=== PATIENT | female | born 1955 | race Caucasian/White ===

== ENCOUNTER 2017-08-21 17:35 | Inpatient (IN) | payer OTHER ==
[~2017-08-21] VITALS: Ht 157.5 cm; Wt 82.6 kg
[2017-08-21 17:41] VITALS: BP_SYST 148
[2017-08-21] MEDS ORDERED: DIPHENHYDRAMINE INJ 50 MG/ML VIAL IVP ONE (18:15)
[2017-08-21] MEDS ORDERED: NACL 0.9% 1,000 ML IV ONE (18:15)
[2017-08-21] MEDS ORDERED: ONDANSETRON HCL 4 MG/2 ML VIAL IVP ONE (18:15)
[2017-08-21] MEDS ORDERED: LISI-221 PO (18:24)
[2017-08-21] MEDS ORDERED: LEVO25TA7 PO (18:24)
[2017-08-21 18:29] LABS: BILIRUBIN,URINE 1+ (NEGATIVE); BLOOD, URINE NEGATIVE (NEGATIVE); CLARITY/URINE SL HAZY (CLEAR); COLOR,URINE YELLOW (YELLOW); GLUCOSE,URINE NEGATIVE (NEGATIVE); KETONES,URINE NEGATIVE (NEGATIVE); LEUKOCYTE ESTERASE ,URINE 2+ (NEGATIVE); NITRITE, URINE NEGATIVE (NEGATIVE); PROTEIN URINE NEGATIVE (NEGATIVE); UROBILINOGEN,URINE 0.2 (0.2-1.0)
[2017-08-21 18:37] LABS: BASOPHILS # (AUTO) 0.1 K/uL (0.0-0.2); BASOPHILS % (AUTO) 0.8 % (0.0-2.0); EOSINOPHILS # (AUTO) 0.4 K/uL (0.0-0.4); EOSINOPHILS % (AUTO) 5.2 % (0.0-4.0); HEMATOCRIT 37.7 % (36-48); HEMOGLOBIN 12.6 g/dL (12.0-16.0); LYMPHOCYTES # (AUTO) 1.3 K/uL (1.0-5.5); LYMPHOCYTES % (AUTO) 17.2 % (20.5-51.5); MEAN CORPUSCULAR HEMOGLOBIN 27 pg (27-31); MEAN CORPUSCULAR HGB CONC 33 % (32-36); MEAN CORPUSCULAR VOLUME 81 fL (79.0-98.0); MONOCYTES # (AUTO) 0.4 K/uL (0.0-1.0); MONOCYTES % (AUTO) 5.5 % (1.7-9.3); NEUTROPHILS # (AUTO) 5.2 K/uL (1.8-7.7); NEUTROPHILS % (AUTO) 71.3 % (40.0-70.0); PLATELET COUNT (AUTO) 359 K/uL (130-430); RED BLOOD CELL COUNT(AUTO) 4.66 MIL/uL (4.2-6.2); WHITE BLOOD COUNT (AUTO) 7.4 K/uL (4.8-10.8)
[2017-08-21 18:40] LABS: BACTERIA,URINE FEW /HPF (None Seen); MUCUS,URINE None Seen /LPF (None Seen); RBC,URINE NONE SEEN /HPF (0-3)
[2017-08-21 19:44] LABS: CREATININE 0.75 mg/dL (0.55-1.30); POTASSIUM 3.3 mmol/L (3.5-5.1)
[2017-08-21 19:46] LABS: ALBUMIN 3.5 g/dL (3.4-4.8); TOTAL BILIRUBIN 8.6 mg/dL (0.0-1.0)
[2017-08-21] MEDS ORDERED: PIPERACILLIN/TAZOBACTAM 3.375 GM/VIAL (ZOSYN) IV ONE (20:42)
[2017-08-21] MEDS ORDERED: PIPERACILLIN/TAZO 4.5GM/DEX-IS 100 ML IV ONE (20:45)
[2017-08-21] MEDS ORDERED: PIPERACILLIN/TAZOBACTAM 4.5 GM/VIAL (ZOSYN) IV ONE (20:46)
[2017-08-21 21:22] VITALS: BP_SYST 139
[2017-08-21] MEDS ORDERED: ACETAMINOPHEN 325 MG TABLET PO PRN (22:00)
[2017-08-21] MEDS ORDERED: DIPHENHYDRAMINE INJ 50 MG/ML VIAL IVP PRN (23:00)
[2017-08-21] MEDS ORDERED: POTASSIUM CHLORIDE 20 MEQ TAB.PRT.SR PO ONE (23:00)
[2017-08-22] MEDS: LR 1,000 ML IV SCH ×2 (00:15→17:59)
[2017-08-22 00:58] VITALS: BP_SYST 122
[2017-08-22] MEDS ORDERED: cefTRIAXone 1 GM VIAL ONE (01:05)
[2017-08-22] MEDS: cefTRIAXone 1 GM in D5W 50 ML IV SCH ×2 (01:20→23:28)
[2017-08-22 06:24] LABS: PROTHROMBIN TIME 9.8 SECS (9.5-12.5)
[2017-08-22 06:27] LABS: ALBUMIN 2.8 g/dL (3.4-4.8); BILIRUBIN,DIRECT 6.8 mg/dL (0.0-0.3); CREATININE 1.01 mg/dL (0.55-1.30); TOTAL BILIRUBIN 7.6 mg/dL (0.0-1.0)
[2017-08-22 06:48] LABS: CALCIUM 6.8 mg/dL (8.4-11.0)
[2017-08-22 07:06] VITALS: BP_SYST 117
[2017-08-22 08:00] VITALS: BP_SYST 117
[2017-08-22] MEDS: HYDROCHLOROTHIAZIDE 25 MG TABLET (HCTZ) PO SCH (09:43)
[2017-08-22] MEDS: LEVOTHYROXINE SODIUM 0.025 MG TABLET PO SCH (09:44)
[2017-08-22] MEDS: DIPHENHYDRAMINE HCL 25 MG CAPSULE PO SCH ×3 (09:44→20:53)
[2017-08-22] MEDS: LISINOPRIL 20 MG TABLET PO SCH (09:45)
[2017-08-22] MEDS ORDERED: POTASSIUM CHLORIDE 20 MEQ TAB.PRT.SR PO ONE (10:30)
[2017-08-22 12:30] VITALS: BP_SYST 115
[2017-08-22 16:30] VITALS: BP_SYST 120
[2017-08-22 20:00] VITALS: BP_SYST 138
[2017-08-22] MEDS: POTASSIUM CHLORIDE 20 MEQ TAB.PRT.SR PO SCH (20:53)
[2017-08-23 00:05] VITALS: BP_SYST 122
[2017-08-23 03:05] VITALS: BP_SYST 120
[2017-08-23 06:37] LABS: PROTHROMBIN TIME 9.7 SECS (9.5-12.5)
[2017-08-23 06:59] LABS: ALBUMIN 2.8 g/dL (3.4-4.8); CALCIUM 7.2 mg/dL (8.4-11.0); CREATININE 0.87 mg/dL (0.55-1.30); POTASSIUM 3.2 mmol/L (3.5-5.1)
[2017-08-23 08:00] VITALS: BP_SYST 127
[2017-08-23] MEDS ORDERED: POTASSIUM CHLORIDE 40 MEQ, LIDOCAINE JECT 2% PF 100 MG 50 MG in NS 250 ML IV ONE (08:30)
[2017-08-23] MEDS: LEVOTHYROXINE SODIUM 0.025 MG TABLET PO SCH (09:00)
[2017-08-23] MEDS: POTASSIUM CHLORIDE 20 MEQ TAB.PRT.SR PO SCH ×2 (09:00→20:33)
[2017-08-23] MEDS: DIPHENHYDRAMINE HCL 25 MG CAPSULE PO SCH ×3 (09:00→20:33)
[2017-08-23] MEDS ORDERED: LIDOCAINE JECT IV ONE (09:18)
[2017-08-23] MEDS ORDERED: NS 0.45% IV ONE (09:18)
[2017-08-23] MEDS ORDERED: POTASSIUM CHLORIDE IV ONE (09:18)
[2017-08-23] MEDS: LR 1,000 ML IV SCH ×2 (10:15→18:15)
[2017-08-23 10:37] VITALS: BP_SYST 122
[2017-08-23] MEDS: HYDROCHLOROTHIAZIDE 25 MG TABLET (HCTZ) PO SCH (12:00)
[2017-08-23] MEDS: LISINOPRIL 20 MG TABLET PO SCH (12:00)
[2017-08-23 12:02] LABS: HEPATITIS A AB, IgM Negative (Negative); HEPATITIS B CORE AB, IgM Negative (Negative); HEPATITIS B SURFACE AG Negative (Negative)
[2017-08-23] MEDS ORDERED: IOHEXOL 50 ML IV ONE (14:33)
[2017-08-23] MEDS ORDERED: LR 1,000 ML IV SCH ×2 (15:16→16:30)
[2017-08-23] MEDS ORDERED: HYDROmorphone 2 MG/ML VIAL IVP PRN ×2 (15:30)
[2017-08-23] MEDS ORDERED: HYDROmorphone 1 MG INJ. 1 MG/ML AMPUL IVP PRN (15:30)
[2017-08-23] MEDS ORDERED: MEPERIDINE HCL/PF 25 MG/ML DISP.SYRIN IVP PRN (15:30)
[2017-08-23] MEDS ORDERED: SEVOFLURANE 15 MIN GAS INH ONE (15:43)
[2017-08-23] MEDS ORDERED: fentaNYL CITRATE 250 MCG/5 ML AMP IV ONE (15:43)
[2017-08-23] MEDS ORDERED: MIDAZOLAM HCL 5 MG/ML VIAL (VERSED) IV ONE (15:43)
[2017-08-23] MEDS ORDERED: GLUCAGON,HUMAN RECOMBINANT 1 MG VIAL IV ONE (15:43)
[2017-08-23] MEDS ORDERED: ROCURONIUM BROMIDE 10 MG/ML (ZEMURON) IV ONE (15:43)
[2017-08-23] MEDS ORDERED: WATER FOR IRRIGATION,STERILE 1,000 ML IRRIG.SOLN IR ONE (15:43)
[2017-08-23] MEDS ORDERED: LR 1,000 ML IV.SOLN IV ONE (15:43)
[2017-08-23] MEDS ORDERED: KETOROLAC TROMETHAMINE 30 MG VIAL IVP ONE (15:43)
[2017-08-23] MEDS ORDERED: DEXAMETHASONE SOD PHOSPHATE 4 MG/ML VIAL IVP ONE (15:43)
[2017-08-23] MEDS ORDERED: ONDANSETRON HCL 4 MG/2 ML VIAL IVP ONE (15:43)
[2017-08-23] MEDS ORDERED: PROPOFOL 200MG/ 20ML VIAL (DIPRIVAN) IV ONE (15:43)
[2017-08-23 16:34] LABS: ANTI NUCLEAR AB WITH REFLEX Negative (Negative)
[2017-08-23 16:40] VITALS: BP_SYST 122
[2017-08-23] MEDS ORDERED: POTASSIUM CHLORIDE 20 MEQ TAB.PRT.SR PO ONE (18:00)
[2017-08-23 19:15] VITALS: BP_SYST 118
[2017-08-23] MEDS: cefTRIAXone 1 GM in D5W 50 ML IV SCH (20:33)
[2017-08-24] MEDS: LR 1,000 ML IV SCH ×2 (04:15→13:19)
[2017-08-24 06:49] LABS: ALBUMIN 2.8 g/dL (3.4-4.8); CALCIUM 7.5 mg/dL (8.4-11.0); CREATININE 1.02 mg/dL (0.55-1.30); TOTAL BILIRUBIN 8.9 mg/dL (0.0-1.0)
[2017-08-24 06:53] LABS: BASOPHILS % (AUTO) 0.1 % (0.0-2.0); EOSINOPHILS % (AUTO) 0.1 % (0.0-4.0); HEMATOCRIT 33.5 % (36-48); HEMOGLOBIN 11.2 g/dL (12.0-16.0); LYMPHOCYTES # (AUTO) 0.5 K/uL (1.0-5.5); LYMPHOCYTES % (AUTO) 6.7 % (20.5-51.5); MEAN CORPUSCULAR HEMOGLOBIN 27 pg (27-31); MEAN CORPUSCULAR HGB CONC 34 % (32-36); MEAN CORPUSCULAR VOLUME 80 fL (79.0-98.0); MONOCYTES # (AUTO) 0.2 K/uL (0.0-1.0); MONOCYTES % (AUTO) 3.3 % (1.7-9.3); NEUTROPHILS # (AUTO) 6.5 K/uL (1.8-7.7); NEUTROPHILS % (AUTO) 89.8 % (40.0-70.0); PLATELET COUNT (AUTO) 275 K/uL (130-430); RED BLOOD CELL COUNT(AUTO) 4.19 MIL/uL (4.2-6.2); RED CELL DISTRIBUTION WIDTH 13.6 % (9.0-15.0); WHITE BLOOD COUNT (AUTO) 7.2 K/uL (4.8-10.8)
[2017-08-24 08:03] VITALS: BP_SYST 104
[2017-08-24] MEDS: POTASSIUM CHLORIDE 20 MEQ TAB.PRT.SR PO SCH ×2 (08:49→20:59)
[2017-08-24] MEDS: LEVOTHYROXINE SODIUM 0.025 MG TABLET PO SCH (08:50)
[2017-08-24] MEDS: DIPHENHYDRAMINE HCL 25 MG CAPSULE PO SCH ×3 (08:50→20:59)
[2017-08-24 10:42] VITALS: BP_SYST 135
[2017-08-24 11:29] VITALS: BP_SYST 139
[2017-08-24] MEDS: LISINOPRIL 20 MG TABLET PO SCH (13:14)
[2017-08-24] MEDS: HYDROCHLOROTHIAZIDE 25 MG TABLET (HCTZ) PO SCH (13:14)
[2017-08-24 15:36] VITALS: BP_SYST 132
[2017-08-24 20:00] VITALS: BP_SYST 145
[2017-08-24 20:11] LABS: ANTI-SMOOTH MUSCLE AB 24 Units (0-19)
[2017-08-24] MEDS: cefTRIAXone 1 GM in D5W 50 ML IV SCH (22:42)
[2017-08-25] VITALS (8 sets, daily range): BP systolic 117–160
[2017-08-25] MEDS: LR 1,000 ML IV SCH ×2 (00:19→11:03)
[2017-08-25 06:33] LABS: BASOPHILS # (AUTO) 0.1 K/uL (0.0-0.2); BASOPHILS % (AUTO) 0.8 % (0.0-2.0); EOSINOPHILS # (AUTO) 0.3 K/uL (0.0-0.4); EOSINOPHILS % (AUTO) 4.3 % (0.0-4.0); HEMOGLOBIN 10.5 g/dL (12.0-16.0); LYMPHOCYTES # (AUTO) 1.3 K/uL (1.0-5.5); LYMPHOCYTES % (AUTO) 20.9 % (20.5-51.5); MEAN CORPUSCULAR HEMOGLOBIN 27 pg (27-31); MEAN CORPUSCULAR HGB CONC 33 % (32-36); MEAN CORPUSCULAR VOLUME 82 fL (79.0-98.0); MONOCYTES # (AUTO) 0.3 K/uL (0.0-1.0); MONOCYTES % (AUTO) 5.2 % (1.7-9.3); NEUTROPHILS # (AUTO) 4.3 K/uL (1.8-7.7); NEUTROPHILS % (AUTO) 68.8 % (40.0-70.0); PLATELET COUNT (AUTO) 277 K/uL (130-430); RED BLOOD CELL COUNT(AUTO) 3.92 MIL/uL (4.2-6.2); RED CELL DISTRIBUTION WIDTH 14.5 % (9.0-15.0); WHITE BLOOD COUNT (AUTO) 6.3 K/uL (4.8-10.8)
[2017-08-25 06:57] LABS: ALBUMIN 2.5 g/dL (3.4-4.8); CALCIUM 7.5 mg/dL (8.4-11.0); CREATININE 0.87 mg/dL (0.55-1.30); POTASSIUM 4.1 mmol/L (3.5-5.1)
[2017-08-25] MEDS: DIPHENHYDRAMINE HCL 25 MG CAPSULE PO SCH ×3 (08:54→20:40)
[2017-08-25] MEDS: POTASSIUM CHLORIDE 20 MEQ TAB.PRT.SR PO SCH ×2 (08:54→20:40)
[2017-08-25] MEDS: LEVOTHYROXINE SODIUM 0.025 MG TABLET PO SCH (09:19)
[2017-08-25] MEDS: LISINOPRIL 20 MG TABLET PO SCH (12:09)
[2017-08-25] MEDS: HYDROCHLOROTHIAZIDE 25 MG TABLET (HCTZ) PO SCH (12:10)
[2017-08-25] MEDS ORDERED: IOHEXOL 100 ML IV ONE ×2 (13:19→19:43)
[2017-08-25] MEDS ORDERED: GLUCAGON,HUMAN RECOMBINANT 1 MG VIAL IV ONE (13:20)
[2017-08-25] MEDS ORDERED: ONDANSETRON HCL 4 MG/2 ML VIAL IVP ONE (13:20)
[2017-08-25] MEDS ORDERED: PROPOFOL 200MG/ 20ML VIAL (DIPRIVAN) IV ONE (13:20)
[2017-08-25] MEDS ORDERED: fentaNYL CITRATE 250 MCG/5 ML AMP IV ONE (13:20)
[2017-08-25] MEDS ORDERED: SEVOFLURANE 15 MIN GAS INH ONE (13:20)
[2017-08-25] MEDS ORDERED: INDOMETHACIN 25 MG CAPSULE(INDOCIN) PO ONE (13:20)
[2017-08-25] MEDS ORDERED: NS IRRIG SOLN 1000 ML IR ONE (13:20)
[2017-08-25] MEDS ORDERED: MIVACURIUM CHLORIDE 20 MG/10 ML VIAL (MIVACRON) INJ ONE (13:20)
[2017-08-25] MEDS ORDERED: MIDAZOLAM HCL 5 MG/5 ML VIAL IVP ONE (13:20)
[2017-08-25] MEDS ORDERED: IOPAMIDOL 100 ML INFUS..BTL IV ONE (13:20)
[2017-08-25] MEDS ORDERED: WATER FOR IRRIGATION,STERILE 1,000 ML IRRIG.SOLN IR ONE (13:20)
[2017-08-25] MEDS ORDERED: MORPHINE SULFATE 10MG/10ML PF AMP EP ONE (13:20)
[2017-08-25] MEDS ORDERED: INDOMETHACIN 25 MG CAPSULE(INDOCIN) ONE (13:44)
[2017-08-25] MEDS ORDERED: LR 1,000 ML IV SCH ×3 (14:03→16:00)
[2017-08-25] MEDS ORDERED: MORPHINE 4 MG/ML INJ. SYRINGE IVP PRN ×6 (14:15)
[2017-08-25] MEDS ORDERED: METOCLOPRAMIDE HCL 10 MG/2 ML VIAL IVP PRN ×2 (14:15)
[2017-08-25] MEDS ORDERED: hydrALAZINE HCL 20 MG/ML VIAL IVP PRN (17:00)
[2017-08-25] MEDS ORDERED: DIATR MEGLU/DIATRIZ SOD 30 ML SOLUTION PO ONE (17:10)
[2017-08-25] MEDS: MORPHINE 4 MG/ML INJ. SYRINGE IVP PRN (17:50)
[2017-08-25] MEDS ORDERED: HYDROmorphone 1 MG INJ. 1 MG/ML AMPUL IVP ONE (18:45)
[2017-08-25] MEDS ORDERED: KETOROLAC TROMETHAMINE 30 MG VIAL IVP ONE (18:45)
[2017-08-25] MEDS ORDERED: HYDROcodone/ACETAMIN 10-325 MG TAB PO ONE (18:45)
[2017-08-25] MEDS: ONDANSETRON HCL 4 MG/2 ML VIAL IVP PRN (20:46)
[2017-08-25] MEDS: cefTRIAXone 1 GM in D5W 50 ML IV SCH (23:29)
[2017-08-26] VITALS (8 sets, daily range): BP systolic 116–140
[2017-08-26] MEDS: LR 1,000 ML IV SCH ×2 (01:21→12:30)
[2017-08-26] MEDS: MORPHINE 4 MG/ML INJ. SYRINGE IVP PRN ×2 (01:21→19:47)
[2017-08-26 06:34] LABS: BASOPHILS % (AUTO) 0.2 % (0.0-2.0); EOSINOPHILS # (AUTO) 0.2 K/uL (0.0-0.4); EOSINOPHILS % (AUTO) 2.3 % (0.0-4.0); HEMATOCRIT 35.5 % (36-48); HEMOGLOBIN 11.5 g/dL (12.0-16.0); LYMPHOCYTES # (AUTO) 0.6 K/uL (1.0-5.5); LYMPHOCYTES % (AUTO) 7.2 % (20.5-51.5); MEAN CORPUSCULAR HEMOGLOBIN 27 pg (27-31); MEAN CORPUSCULAR HGB CONC 33 % (32-36); MEAN CORPUSCULAR VOLUME 82 fL (79.0-98.0); MONOCYTES # (AUTO) 0.1 K/uL (0.0-1.0); MONOCYTES % (AUTO) 1.4 % (1.7-9.3); NEUTROPHILS % (AUTO) 88.9 % (40.0-70.0); PLATELET COUNT (AUTO) 309 K/uL (130-430); RED BLOOD CELL COUNT(AUTO) 4.34 MIL/uL (4.2-6.2); RED CELL DISTRIBUTION WIDTH 14.2 % (9.0-15.0); WHITE BLOOD COUNT (AUTO) 8.9 K/uL (4.8-10.8)
[2017-08-26 06:45] LABS: ALBUMIN 2.5 g/dL (3.4-4.8); CREATININE 0.99 mg/dL (0.55-1.30); POTASSIUM 3.9 mmol/L (3.5-5.1)
[2017-08-26 07:16] LABS: CALCIUM 6.9 mg/dL (8.4-11.0)
[2017-08-26] MEDS: MORPHINE 2 MG/ML INJ. SYRINGE IVP PRN ×2 (07:52→16:31)
[2017-08-26] MEDS: POTASSIUM CHLORIDE 20 MEQ TAB.PRT.SR PO SCH ×2 (08:53→20:43)
[2017-08-26] MEDS: DIPHENHYDRAMINE HCL 25 MG CAPSULE PO SCH ×3 (08:53→20:43)
[2017-08-26] MEDS: LEVOTHYROXINE SODIUM 0.025 MG TABLET PO SCH (08:53)
[2017-08-26] MEDS: LISINOPRIL 20 MG TABLET PO SCH (12:36)
[2017-08-26] MEDS: HYDROCHLOROTHIAZIDE 25 MG TABLET (HCTZ) PO SCH (12:36)
[2017-08-26] MEDS: CALCIUM 600/VIT D PO SCH ×3 (16:22→20:43)
[2017-08-26] MEDS: CHOLECALCIFEROL (VITAMIN D3) 2,000 UNIT TABLET PO SCH (18:56)
[2017-08-26] MEDS: cefTRIAXone 1 GM in D5W 50 ML IV SCH (22:14)
[2017-08-26 23:44] LABS: BILIRUBIN,URINE 1+ (NEGATIVE); BLOOD, URINE NEGATIVE (NEGATIVE); CLARITY/URINE CLEAR (CLEAR); COLOR,URINE AMBER (YELLOW); GLUCOSE,URINE NEGATIVE (NEGATIVE); KETONES,URINE 1+ (NEGATIVE); LEUKOCYTE ESTERASE ,URINE NEGATIVE (NEGATIVE); NITRITE, URINE NEGATIVE (NEGATIVE); PH,URINE 5.5 (5.0-8.0); PROTEIN URINE NEGATIVE (NEGATIVE)
[2017-08-27 00:06] LABS: BACTERIA,URINE MANY /HPF (None Seen); RBC,URINE 0-3 /HPF (0-3); WBC,URINE 0-3 /HPF (0-3)
[2017-08-27 00:19] VITALS: BP_SYST 120
[2017-08-27] MEDS: MORPHINE 4 MG/ML INJ. SYRINGE IVP PRN ×2 (00:20→06:53)
[2017-08-27 04:14] VITALS: BP_SYST 113
[2017-08-27 06:46] LABS: BASOPHILS # (AUTO) 0.1 K/uL (0.0-0.2); BASOPHILS % (AUTO) 0.6 % (0.0-2.0); EOSINOPHILS # (AUTO) 0.5 K/uL (0.0-0.4); EOSINOPHILS % (AUTO) 2.3 % (0.0-4.0); HEMATOCRIT 34.1 % (36-48); HEMOGLOBIN 11.7 g/dL (12.0-16.0); LYMPHOCYTES # (AUTO) 0.5 K/uL (1.0-5.5); LYMPHOCYTES % (AUTO) 2.6 % (20.5-51.5); MEAN CORPUSCULAR HEMOGLOBIN 28 pg (27-31); MEAN CORPUSCULAR HGB CONC 34 % (32-36); MEAN CORPUSCULAR VOLUME 80 fL (79.0-98.0); MONOCYTES # (AUTO) 0.6 K/uL (0.0-1.0); MONOCYTES % (AUTO) 2.8 % (1.7-9.3); NEUTROPHILS # (AUTO) 18.4 K/uL (1.8-7.7); NEUTROPHILS % (AUTO) 91.7 % (40.0-70.0); PLATELET COUNT (AUTO) 280 K/uL (130-430); RED BLOOD CELL COUNT(AUTO) 4.25 MIL/uL (4.2-6.2); RED CELL DISTRIBUTION WIDTH 14.2 % (9.0-15.0); WHITE BLOOD COUNT (AUTO) 20.1 K/uL (4.8-10.8)
[2017-08-27 07:00] LABS: ALBUMIN 2.3 g/dL (3.4-4.8); CREATININE 0.96 mg/dL (0.55-1.30); POTASSIUM 3.9 mmol/L (3.5-5.1)
[2017-08-27 07:03] LABS: INR 1.3 (0.8-1.2); PROTHROMBIN TIME 13.2 SECS (9.5-12.5)
[2017-08-27 07:10] LABS: CALCIUM 6.1 mg/dL (8.4-11.0)
[2017-08-27] MEDS ORDERED: CALCIUM GLUCONATE 1 GM/10 ML VIAL IV ONE (07:45)
[2017-08-27] MEDS ORDERED: CALCIUM GLUCONATE 1 GM in NS 100 ML IV ONE ×2 (08:45→15:00)
[2017-08-27] MEDS: DIPHENHYDRAMINE HCL 25 MG CAPSULE PO SCH ×3 (09:00→21:00)
[2017-08-27] MEDS: PIPERACILLIN/TAZO 4.5GM/DEX-IS 100 ML IV SCH ×3 (09:29→22:00)
[2017-08-27] MEDS: CALCIUM 600/VIT D PO SCH ×4 (09:34→21:00)
[2017-08-27] MEDS: POTASSIUM CHLORIDE 20 MEQ TAB.PRT.SR PO SCH ×2 (09:35→21:00)
[2017-08-27] MEDS: CHOLECALCIFEROL (VITAMIN D3) 2,000 UNIT TABLET PO SCH (09:35)
[2017-08-27] MEDS: LEVOTHYROXINE SODIUM 0.025 MG TABLET PO SCH (09:38)
[2017-08-27] MEDS: LR 1,000 ML IV SCH ×4 (09:38→21:36)
[2017-08-27] MEDS: LISINOPRIL 20 MG TABLET PO SCH (09:44)
[2017-08-27] MEDS: VANCOMYCIN HCL 750 MG in NS 250 ML IV SCH ×2 (10:00→22:00)
[2017-08-27 12:52] VITALS: BP_SYST 122
[2017-08-27] MEDS ORDERED: IPRATROPIUM/ALBUTEROL SULFATE 3 ML AMPUL.NEB INH PRN (14:00)
[2017-08-27 16:53] VITALS: BP_SYST 120
[2017-08-27] MEDS: MORPHINE 2 MG/ML INJ. SYRINGE IVP PRN (18:27)
[2017-08-27] MEDS: HYDROCHLOROTHIAZIDE 25 MG TABLET (HCTZ) PO SCH (18:31)
[2017-08-27 20:00] VITALS: BP_SYST 142
[2017-08-27] MEDS ORDERED: CALCIUM GLUCONATE 1 GM/10 ML VIAL ONE (21:21)
[2017-08-28 00:29] VITALS: BP_SYST 126
[2017-08-28] MEDS: LR 1,000 ML IV SCH ×6 (02:05→23:45)
[2017-08-28 04:34] VITALS: BP_SYST 131
[2017-08-28] MEDS: PIPERACILLIN/TAZO 4.5GM/DEX-IS 100 ML IV SCH ×3 (05:18→22:01)
[2017-08-28 06:53] LABS: BASOPHILS % (AUTO) 0.2 % (0.0-2.0); EOSINOPHILS # (AUTO) 0.5 K/uL (0.0-0.4); EOSINOPHILS % (AUTO) 2.2 % (0.0-4.0); HEMATOCRIT 32.1 % (36-48); HEMOGLOBIN 10.6 g/dL (12.0-16.0); LYMPHOCYTES # (AUTO) 0.6 K/uL (1.0-5.5); LYMPHOCYTES % (AUTO) 2.8 % (20.5-51.5); MEAN CORPUSCULAR HEMOGLOBIN 27 pg (27-31); MEAN CORPUSCULAR HGB CONC 33 % (32-36); MEAN CORPUSCULAR VOLUME 82 fL (79.0-98.0); MONOCYTES # (AUTO) 0.8 K/uL (0.0-1.0); MONOCYTES % (AUTO) 3.8 % (1.7-9.3); NEUTROPHILS # (AUTO) 18.6 K/uL (1.8-7.7); PLATELET COUNT (AUTO) 280 K/uL (130-430); RED BLOOD CELL COUNT(AUTO) 3.93 MIL/uL (4.2-6.2); RED CELL DISTRIBUTION WIDTH 14.3 % (9.0-15.0); WHITE BLOOD COUNT (AUTO) 20.5 K/uL (4.8-10.8)
[2017-08-28] MEDS: IPRATROPIUM/ALBUTEROL SULFATE 3 ML AMPUL.NEB INH SCH ×3 (07:00→19:59)
[2017-08-28 07:22] LABS: CREATININE 0.8 mg/dL (0.55-1.30); POTASSIUM 3.3 mmol/L (3.5-5.1); TOTAL BILIRUBIN 2.4 mg/dL (0.0-1.0)
[2017-08-28 08:00] VITALS: BP_SYST 136
[2017-08-28] MEDS: POTASSIUM CHLORIDE 20 MEQ TAB.PRT.SR PO SCH ×2 (08:04→20:37)
[2017-08-28] MEDS: DIPHENHYDRAMINE HCL 25 MG CAPSULE PO SCH ×3 (08:05→20:57)
[2017-08-28] MEDS: LEVOTHYROXINE SODIUM 0.025 MG TABLET PO SCH (08:05)
[2017-08-28] MEDS: CHOLECALCIFEROL (VITAMIN D3) 2,000 UNIT TABLET PO SCH (08:05)
[2017-08-28 08:11] LABS: CALCIUM 6.7 mg/dL (8.4-11.0)
[2017-08-28] MEDS: CALCIUM 600/VIT D PO SCH ×4 (08:11→20:38)
[2017-08-28] MEDS: VANCOMYCIN HCL 750 MG in NS 250 ML IV SCH ×2 (08:59→22:53)
[2017-08-28] MEDS ORDERED: CALCIUM GLUCONATE 1 GM in NS 100 ML IV ONE (09:15)
[2017-08-28] MEDS ORDERED: FLUCONAZOLE 200 mg/ NS 100 ML IV ONE (10:45)
[2017-08-28] MEDS ORDERED: NS 250 ML IV ONE (10:45)
[2017-08-28 12:09] VITALS: BP_SYST 133
[2017-08-28] MEDS: LISINOPRIL 20 MG TABLET PO SCH (12:13)
[2017-08-28] MEDS: HYDROCHLOROTHIAZIDE 25 MG TABLET (HCTZ) PO SCH (12:13)
[2017-08-28] MEDS: MORPHINE 4 MG/ML INJ. SYRINGE IVP PRN (12:51)
[2017-08-28] MEDS ORDERED: POTASSIUM CHLORIDE 20 MEQ TAB.PRT.SR PO ONE (14:15)
[2017-08-28 16:28] VITALS: BP_SYST 134
[2017-08-28 20:00] VITALS: BP_SYST 128
[2017-08-29] VITALS (10 sets, daily range): BP systolic 124–150
[2017-08-29] MEDS: IPRATROPIUM/ALBUTEROL SULFATE 3 ML AMPUL.NEB INH SCH ×4 (00:47→19:56)
[2017-08-29] MEDS: LR 1,000 ML IV SCH ×5 (01:22→14:18)
[2017-08-29] MEDS: PIPERACILLIN/TAZO 4.5GM/DEX-IS 100 ML IV SCH ×3 (05:24→20:59)
[2017-08-29 06:29] LABS: HEMATOCRIT 31.2 % (36-48); HEMOGLOBIN 10.5 g/dL (12.0-16.0); MEAN CORPUSCULAR HEMOGLOBIN 27 pg (27-31); MEAN CORPUSCULAR HGB CONC 34 % (32-36); MEAN CORPUSCULAR VOLUME 81 fL (79.0-98.0); PLATELET COUNT (AUTO) 345 K/uL (130-430); RED BLOOD CELL COUNT(AUTO) 3.84 MIL/uL (4.2-6.2); RED CELL DISTRIBUTION WIDTH 14.3 % (9.0-15.0)
[2017-08-29 06:33] LABS: CREATININE 0.8 mg/dL (0.55-1.30); PHOSPHORUS 3.8 mg/dL (2.7-4.5); POTASSIUM 3.6 mmol/L (3.5-5.1); TOTAL BILIRUBIN 1.9 mg/dL (0.0-1.0)
[2017-08-29 07:26] LABS: CALCIUM 6.7 mg/dL (8.4-11.0)
[2017-08-29 08:48] LABS: ATYPICAL LYMPHOCYTES % 0 % (0-0); BAND % (MANUAL) 14 % (0-6); BASOPHILS % (MANUAL) 0 % (0-2); EOSINOPHILS % (MANUAL) 0 % (0-7); LYMPHOCYTES % (MANUAL) 5 % (20-46); MONOCYTES % (MANUAL) 1 % (0-11)
[2017-08-29] MEDS: DIPHENHYDRAMINE HCL 25 MG CAPSULE PO SCH ×3 (09:00→20:13)
[2017-08-29] MEDS: LEVOTHYROXINE SODIUM 0.025 MG TABLET PO SCH (09:00)
[2017-08-29] MEDS ORDERED: CALCIUM GLUCONATE 1 GM in NS 100 ML IV ONE (09:00)
[2017-08-29] MEDS: POTASSIUM CHLORIDE 20 MEQ TAB.PRT.SR PO SCH ×2 (09:02→20:11)
[2017-08-29] MEDS: CHOLECALCIFEROL (VITAMIN D3) 2,000 UNIT TABLET PO SCH (09:03)
[2017-08-29] MEDS: CALCIUM 600/VIT D PO SCH (09:03)
[2017-08-29] MEDS: MORPHINE 4 MG/ML INJ. SYRINGE IVP PRN (09:06)
[2017-08-29] MEDS: VANCOMYCIN HCL 750 MG in NS 250 ML IV SCH ×2 (09:16→22:10)
[2017-08-29] MEDS ORDERED: CALCITRIOL 0.25 MCG CAPSULE PO ONE (10:00)
[2017-08-29] MEDS: LISINOPRIL 20 MG TABLET PO SCH (11:16)
[2017-08-29] MEDS: HYDROCHLOROTHIAZIDE 25 MG TABLET (HCTZ) PO SCH (11:18)
[2017-08-29] MEDS: CALCIUM 500 MG/TAB PO SCH ×2 (15:00→20:11)
[2017-08-29] MEDS: CALCITRIOL 0.25 MCG CAPSULE PO SCH (20:11)
[2017-08-30] VITALS: BP_SYST 142
[2017-08-30] MEDS: IPRATROPIUM/ALBUTEROL SULFATE 3 ML AMPUL.NEB INH SCH ×4 (00:46→19:22)
[2017-08-30 04:06] VITALS: BP_SYST 143
[2017-08-30] MEDS: LR 1,000 ML IV SCH ×2 (05:19→17:28)
[2017-08-30] MEDS: PIPERACILLIN/TAZO 4.5GM/DEX-IS 100 ML IV SCH ×3 (05:20→21:48)
[2017-08-30] MEDS: MORPHINE 2 MG/ML INJ. SYRINGE IVP PRN (06:17)
[2017-08-30 06:38] LABS: BASOPHILS % (AUTO) 0.2 % (0.0-2.0); EOSINOPHILS # (AUTO) 0.3 K/uL (0.0-0.4); EOSINOPHILS % (AUTO) 2.2 % (0.0-4.0); HEMATOCRIT 29.7 % (36-48); HEMOGLOBIN 10.1 g/dL (12.0-16.0); LYMPHOCYTES # (AUTO) 0.8 K/uL (1.0-5.5); LYMPHOCYTES % (AUTO) 5.2 % (20.5-51.5); MEAN CORPUSCULAR HEMOGLOBIN 27 pg (27-31); MEAN CORPUSCULAR HGB CONC 34 % (32-36); MEAN CORPUSCULAR VOLUME 81 fL (79.0-98.0); MONOCYTES # (AUTO) 0.9 K/uL (0.0-1.0); MONOCYTES % (AUTO) 5.9 % (1.7-9.3); NEUTROPHILS # (AUTO) 12.7 K/uL (1.8-7.7); NEUTROPHILS % (AUTO) 86.5 % (40.0-70.0); PLATELET COUNT (AUTO) 395 K/uL (130-430); RED BLOOD CELL COUNT(AUTO) 3.67 MIL/uL (4.2-6.2); RED CELL DISTRIBUTION WIDTH 14.4 % (9.0-15.0); WHITE BLOOD COUNT (AUTO) 14.7 K/uL (4.8-10.8)
[2017-08-30 07:16] LABS: CALCIUM 8.2 mg/dL (8.4-11.0); CREATININE 0.83 mg/dL (0.55-1.30); POTASSIUM 3.4 mmol/L (3.5-5.1)
[2017-08-30 07:41] LABS: ALBUMIN 1.8 g/dL (3.4-4.8); THYROID STIMULATING HORMONE 14.21 uIu/mL (0.36-3.74); TOTAL BILIRUBIN 1.6 mg/dL (0.0-1.0)
[2017-08-30] MEDS ORDERED: CALCITRIOL 0.25 MCG CAPSULE PO SCH (09:00)
[2017-08-30] MEDS: DIPHENHYDRAMINE HCL 25 MG CAPSULE PO SCH ×3 (09:03→20:43)
[2017-08-30] MEDS: CALCIUM 500 MG/TAB PO SCH ×3 (09:03→20:43)
[2017-08-30] MEDS: POTASSIUM CHLORIDE 20 MEQ TAB.PRT.SR PO SCH ×2 (09:03→20:43)
[2017-08-30] MEDS: LEVOTHYROXINE SODIUM 0.025 MG TABLET PO SCH (09:03)
[2017-08-30] MEDS: CALCITRIOL 0.25 MCG CAPSULE PO SCH (09:04)
[2017-08-30] MEDS: VANCOMYCIN HCL 750 MG in NS 250 ML IV SCH ×2 (09:15→21:48)
[2017-08-30 09:46] VITALS: BP_SYST 143
[2017-08-30 12:00] VITALS: BP_SYST 131
[2017-08-30] MEDS: HYDROCHLOROTHIAZIDE 25 MG TABLET (HCTZ) PO SCH (12:36)
[2017-08-30] MEDS: LISINOPRIL 20 MG TABLET PO SCH (12:37)
[2017-08-30 16:00] VITALS: BP_SYST 129
[2017-08-30] MEDS ORDERED: POTASSIUM CHLORIDE 20 MEQ TAB.PRT.SR PO ONE (17:15)
[2017-08-30] MEDS ORDERED: MORPHINE 4 MG/ML INJ. SYRINGE IVP PRN (17:30)
[2017-08-30 19:48] VITALS: BP_SYST 143
[2017-08-30] MEDS: ONDANSETRON HCL 4 MG/2 ML VIAL IVP PRN (21:00)
[2017-08-31 00:01] VITALS: BP_SYST 137
[2017-08-31] MEDS: IPRATROPIUM/ALBUTEROL SULFATE 3 ML AMPUL.NEB INH SCH ×4 (01:00→20:30)
[2017-08-31 03:56] VITALS: BP_SYST 127
[2017-08-31] MEDS: LR 1,000 ML IV SCH (06:06)
[2017-08-31] MEDS: PIPERACILLIN/TAZO 4.5GM/DEX-IS 100 ML IV SCH ×3 (06:06→22:00)
[2017-08-31 06:09] LABS: BASOPHILS % (AUTO) 0.2 % (0.0-2.0); EOSINOPHILS # (AUTO) 0.7 K/uL (0.0-0.4); EOSINOPHILS % (AUTO) 4.5 % (0.0-4.0); HEMOGLOBIN 9.9 g/dL (12.0-16.0); LYMPHOCYTES # (AUTO) 0.9 K/uL (1.0-5.5); LYMPHOCYTES % (AUTO) 5.5 % (20.5-51.5); MEAN CORPUSCULAR HEMOGLOBIN 28 pg (27-31); MEAN CORPUSCULAR HGB CONC 34 % (32-36); MEAN CORPUSCULAR VOLUME 81 fL (79.0-98.0); MONOCYTES # (AUTO) 1.1 K/uL (0.0-1.0); MONOCYTES % (AUTO) 7.2 % (1.7-9.3); NEUTROPHILS # (AUTO) 12.9 K/uL (1.8-7.7); PLATELET COUNT (AUTO) 426 K/uL (130-430); RED BLOOD CELL COUNT(AUTO) 3.58 MIL/uL (4.2-6.2); RED CELL DISTRIBUTION WIDTH 13.9 % (9.0-15.0); WHITE BLOOD COUNT (AUTO) 15.6 K/uL (4.8-10.8)
[2017-08-31] MEDS: LEVOTHYROXINE SODIUM 0.112 MG TABLET PO SCH (06:20)
[2017-08-31 06:44] LABS: ALBUMIN 1.9 g/dL (3.4-4.8); CALCIUM 8.1 mg/dL (8.4-11.0); CREATININE 0.81 mg/dL (0.55-1.30); POTASSIUM 4.1 mmol/L (3.5-5.1); TOTAL BILIRUBIN 1.4 mg/dL (0.0-1.0)
[2017-08-31] MEDS ORDERED: LEVOTHYROXINE SODIUM 0.025 MG TABLET PO SCH ×2 (07:00)
[2017-08-31 07:39] LABS: NEUTROPHILS % (AUTO) 82.6 % (40.0-70.0)
[2017-08-31 08:43] VITALS: BP_SYST 147
[2017-08-31] MEDS: DIPHENHYDRAMINE HCL 25 MG CAPSULE PO SCH ×4 (09:00→21:59)
[2017-08-31] MEDS: CALCITRIOL 0.25 MCG CAPSULE PO SCH (09:55)
[2017-08-31] MEDS: CALCIUM 500 MG/TAB PO SCH ×3 (09:55→22:00)
[2017-08-31] MEDS: POTASSIUM CHLORIDE 20 MEQ TAB.PRT.SR PO SCH ×2 (09:55→21:59)
[2017-08-31] MEDS: VANCOMYCIN HCL 750 MG in NS 250 ML IV SCH (09:56)
[2017-08-31] MEDS: LISINOPRIL 20 MG TABLET PO SCH (11:53)
[2017-08-31] MEDS: HYDROCHLOROTHIAZIDE 25 MG TABLET (HCTZ) PO SCH (11:54)
[2017-08-31 12:33] VITALS: BP_SYST 135
[2017-08-31 16:49] VITALS: BP_SYST 146
[2017-08-31 20:00] VITALS: BP_SYST 134
[2017-08-31] MEDS: VANCOMYCIN HCL 1,000 MG in NS 250 ML IV SCH (23:00)
[2017-09-01] VITALS (7 sets, daily range): BP systolic 106–136
[2017-09-01] MEDS: IPRATROPIUM/ALBUTEROL SULFATE 3 ML AMPUL.NEB INH SCH ×4 (01:57→20:49)
[2017-09-01] MEDS: PIPERACILLIN/TAZO 4.5GM/DEX-IS 100 ML IV SCH ×3 (06:10→22:38)
[2017-09-01 06:28] LABS: BASOPHILS # (AUTO) 0.1 K/uL (0.0-0.2); BASOPHILS % (AUTO) 0.4 % (0.0-2.0); EOSINOPHILS # (AUTO) 0.7 K/uL (0.0-0.4); EOSINOPHILS % (AUTO) 4.1 % (0.0-4.0); HEMATOCRIT 30.1 % (36-48); LYMPHOCYTES # (AUTO) 0.9 K/uL (1.0-5.5); LYMPHOCYTES % (AUTO) 5.8 % (20.5-51.5); MEAN CORPUSCULAR HEMOGLOBIN 27 pg (27-31); MEAN CORPUSCULAR HGB CONC 33 % (32-36); MEAN CORPUSCULAR VOLUME 81 fL (79.0-98.0); MONOCYTES % (AUTO) 6.5 % (1.7-9.3); NEUTROPHILS # (AUTO) 13.2 K/uL (1.8-7.7); NEUTROPHILS % (AUTO) 83.2 % (40.0-70.0); PLATELET COUNT (AUTO) 512 K/uL (130-430); RED BLOOD CELL COUNT(AUTO) 3.71 MIL/uL (4.2-6.2); RED CELL DISTRIBUTION WIDTH 13.8 % (9.0-15.0); WHITE BLOOD COUNT (AUTO) 15.9 K/uL (4.8-10.8)
[2017-09-01 06:42] LABS: INR 1.1 (0.8-1.2)
[2017-09-01 06:44] LABS: CALCIUM 8.6 mg/dL (8.4-11.0); CREATININE 0.86 mg/dL (0.55-1.30); POTASSIUM 4.2 mmol/L (3.5-5.1); TOTAL BILIRUBIN 1.3 mg/dL (0.0-1.0)
[2017-09-01] MEDS: LEVOTHYROXINE SODIUM 0.112 MG TABLET PO SCH (07:42)
[2017-09-01] MEDS: DIPHENHYDRAMINE HCL 25 MG CAPSULE PO SCH ×3 (09:00→21:00)
[2017-09-01] MEDS: CALCIUM 500 MG/TAB PO SCH ×3 (09:24→22:35)
[2017-09-01] MEDS: VANCOMYCIN HCL 1,000 MG in NS 250 ML IV SCH ×2 (09:24→22:37)
[2017-09-01] MEDS: CALCITRIOL 0.25 MCG CAPSULE PO SCH (09:25)
[2017-09-01] MEDS: POTASSIUM CHLORIDE 20 MEQ TAB.PRT.SR PO SCH ×2 (09:25→22:36)
[2017-09-01] MEDS: HYDROCHLOROTHIAZIDE 25 MG TABLET (HCTZ) PO SCH (12:04)
[2017-09-01] MEDS: LISINOPRIL 20 MG TABLET PO SCH (12:04)
[2017-09-02] VITALS (7 sets, daily range): BP systolic 111–129
[2017-09-02] MEDS: IPRATROPIUM/ALBUTEROL SULFATE 3 ML AMPUL.NEB INH SCH ×4 (00:18→20:40)
[2017-09-02] MEDS: PIPERACILLIN/TAZO 4.5GM/DEX-IS 100 ML IV SCH ×3 (06:16→21:27)
[2017-09-02] MEDS: LEVOTHYROXINE SODIUM 0.112 MG TABLET PO SCH (06:18)
[2017-09-02 07:14] LABS: BASOPHILS % (AUTO) 0.1 % (0.0-2.0); EOSINOPHILS # (AUTO) 0.8 K/uL (0.0-0.4); HEMATOCRIT 31.7 % (36-48); HEMOGLOBIN 10.6 g/dL (12.0-16.0); LYMPHOCYTES # (AUTO) 1.2 K/uL (1.0-5.5); LYMPHOCYTES % (AUTO) 7.2 % (20.5-51.5); MEAN CORPUSCULAR HEMOGLOBIN 27 pg (27-31); MEAN CORPUSCULAR HGB CONC 34 % (32-36); MEAN CORPUSCULAR VOLUME 81 fL (79.0-98.0); MONOCYTES # (AUTO) 1.2 K/uL (0.0-1.0); MONOCYTES % (AUTO) 7.4 % (1.7-9.3); NEUTROPHILS # (AUTO) 13.2 K/uL (1.8-7.7); NEUTROPHILS % (AUTO) 80.3 % (40.0-70.0); PLATELET COUNT (AUTO) 550 K/uL (130-430); RED BLOOD CELL COUNT(AUTO) 3.91 MIL/uL (4.2-6.2); RED CELL DISTRIBUTION WIDTH 13.7 % (9.0-15.0); WHITE BLOOD COUNT (AUTO) 16.4 K/uL (4.8-10.8)
[2017-09-02 07:26] LABS: ALBUMIN 2.1 g/dL (3.4-4.8); CALCIUM 8.8 mg/dL (8.4-11.0); CREATININE 0.85 mg/dL (0.55-1.30); POTASSIUM 4.1 mmol/L (3.5-5.1); TOTAL BILIRUBIN 1.2 mg/dL (0.0-1.0)
[2017-09-02] MEDS: CALCIUM 500 MG/TAB PO SCH ×3 (08:41→21:26)
[2017-09-02] MEDS: POTASSIUM CHLORIDE 20 MEQ TAB.PRT.SR PO SCH ×2 (08:41→21:26)
[2017-09-02] MEDS: CALCITRIOL 0.25 MCG CAPSULE PO SCH (08:41)
[2017-09-02] MEDS: DIPHENHYDRAMINE HCL 25 MG CAPSULE PO SCH ×4 (08:41→21:26)
[2017-09-02] MEDS: VANCOMYCIN HCL 1,000 MG in NS 250 ML IV SCH ×2 (10:11→23:11)
[2017-09-02] MEDS: LISINOPRIL 20 MG TABLET PO SCH (11:19)
[2017-09-02] MEDS: HYDROCHLOROTHIAZIDE 25 MG TABLET (HCTZ) PO SCH (11:20)
[2017-09-03] VITALS (7 sets, daily range): BP systolic 102–131
[2017-09-03] MEDS: IPRATROPIUM/ALBUTEROL SULFATE 3 ML AMPUL.NEB INH SCH ×4 (01:00→20:15)
[2017-09-03] MEDS: PIPERACILLIN/TAZO 4.5GM/DEX-IS 100 ML IV SCH ×3 (05:48→21:51)
[2017-09-03] MEDS: LEVOTHYROXINE SODIUM 0.112 MG TABLET PO SCH (06:33)
[2017-09-03 07:10] LABS: ALBUMIN 2.2 g/dL (3.4-4.8); BILIRUBIN,DIRECT 0.9 mg/dL (0.0-0.3); TOTAL BILIRUBIN 1.1 mg/dL (0.0-1.0)
[2017-09-03] MEDS: DIPHENHYDRAMINE HCL 25 MG CAPSULE PO SCH ×3 (08:16→21:00)
[2017-09-03] MEDS: CALCIUM 500 MG/TAB PO SCH ×2 (08:18→21:46)
[2017-09-03] MEDS: CALCITRIOL 0.25 MCG CAPSULE PO SCH (08:18)
[2017-09-03] MEDS: POTASSIUM CHLORIDE 20 MEQ TAB.PRT.SR PO SCH ×2 (08:18→21:46)
[2017-09-03] MEDS: LISINOPRIL 20 MG TABLET PO SCH (12:13)
[2017-09-03] MEDS: VANCOMYCIN HCL 1,000 MG in NS 250 ML IV SCH ×2 (12:13→21:50)
[2017-09-03] MEDS: HYDROCHLOROTHIAZIDE 25 MG TABLET (HCTZ) PO SCH (12:13)
[2017-09-04] VITALS (7 sets, daily range): BP systolic 111–118
[2017-09-04] MEDS: IPRATROPIUM/ALBUTEROL SULFATE 3 ML AMPUL.NEB INH SCH ×4 (00:38→19:00)
[2017-09-04] MEDS: PIPERACILLIN/TAZO 4.5GM/DEX-IS 100 ML IV SCH ×3 (05:26→22:14)
[2017-09-04] MEDS: LEVOTHYROXINE SODIUM 0.112 MG TABLET PO SCH (06:16)
[2017-09-04 06:28] LABS: BASOPHILS # (AUTO) 0.1 K/uL (0.0-0.2); BASOPHILS % (AUTO) 0.7 % (0.0-2.0); EOSINOPHILS # (AUTO) 0.7 K/uL (0.0-0.4); EOSINOPHILS % (AUTO) 4.9 % (0.0-4.0); HEMATOCRIT 30.4 % (36-48); HEMOGLOBIN 10.2 g/dL (12.0-16.0); LYMPHOCYTES % (AUTO) 6.9 % (20.5-51.5); MEAN CORPUSCULAR HEMOGLOBIN 27 pg (27-31); MEAN CORPUSCULAR HGB CONC 34 % (32-36); MEAN CORPUSCULAR VOLUME 81 fL (79.0-98.0); MONOCYTES % (AUTO) 7.1 % (1.7-9.3); NEUTROPHILS # (AUTO) 11.3 K/uL (1.8-7.7); NEUTROPHILS % (AUTO) 80.4 % (40.0-70.0); PLATELET COUNT (AUTO) 566 K/uL (130-430); RED BLOOD CELL COUNT(AUTO) 3.75 MIL/uL (4.2-6.2); RED CELL DISTRIBUTION WIDTH 13.4 % (9.0-15.0); WHITE BLOOD COUNT (AUTO) 14.1 K/uL (4.8-10.8)
[2017-09-04 06:30] LABS: CALCIUM 9.3 mg/dL (8.4-11.0); CREATININE 1.17 mg/dL (0.55-1.30); POTASSIUM 4.5 mmol/L (3.5-5.1)
[2017-09-04 06:37] LABS: ALBUMIN 2.2 g/dL (3.4-4.8); BILIRUBIN,DIRECT 0.8 mg/dL (0.0-0.3); PHOSPHORUS 4.5 mg/dL (2.7-4.5); TOTAL BILIRUBIN 0.9 mg/dL (0.0-1.0)
[2017-09-04] MEDS: CALCITRIOL 0.25 MCG CAPSULE PO SCH (09:00)
[2017-09-04] MEDS: DIPHENHYDRAMINE HCL 25 MG CAPSULE PO SCH ×3 (09:00→21:00)
[2017-09-04] MEDS: CALCIUM 500 MG/TAB PO SCH ×2 (09:00→21:00)
[2017-09-04] MEDS: POTASSIUM CHLORIDE 20 MEQ TAB.PRT.SR PO SCH ×2 (09:00→21:00)
[2017-09-04 09:49] LABS: CALCIUM 9.4 mg/dL (8.4-11.0); POTASSIUM 4.5 mmol/L (3.5-5.1)
[2017-09-04 09:50] LABS: ALBUMIN 2.2 g/dL (3.4-4.8); CREATININE 1.21 mg/dL (0.55-1.30); TOTAL BILIRUBIN 0.9 mg/dL (0.0-1.0)
[2017-09-04] MEDS: VANCOMYCIN HCL 1,000 MG in NS 250 ML IV SCH ×2 (10:27→23:02)
[2017-09-04] MEDS: LISINOPRIL 20 MG TABLET PO SCH (12:00)
[2017-09-04] MEDS: HYDROCHLOROTHIAZIDE 25 MG TABLET (HCTZ) PO SCH (12:00)
[2017-09-04] MEDS ORDERED: NS IRRIG SOLN 1000 ML IR ONE (14:07)
[2017-09-04] MEDS ORDERED: ROCURONIUM BROMIDE 10 MG/ML (ZEMURON) IV ONE (14:07)
[2017-09-04] MEDS ORDERED: NEOSTIGMINE METHYLSULFATE 1 MG/ML, 10 ML VIAL IVP ONE (14:07)
[2017-09-04] MEDS ORDERED: SEVOFLURANE 15 MIN GAS INH ONE (14:07)
[2017-09-04] MEDS ORDERED: fentaNYL CITRATE/PF 100 MCG/2 ML AMP IVP ONE (14:07)
[2017-09-04] MEDS ORDERED: MIDAZOLAM HCL 5 MG/ML VIAL (VERSED) IV ONE (14:07)
[2017-09-04] MEDS ORDERED: PROPOFOL 200MG/ 20ML VIAL (DIPRIVAN) IV ONE (14:07)
[2017-09-04] MEDS ORDERED: LR 1,000 ML IV.SOLN IV ONE (14:07)
[2017-09-04] MEDS ORDERED: NS 1000 ML BAG IV ONE (14:07)
[2017-09-04] MEDS ORDERED: GLYCOPYRROLATE 0.2 MG/ML VIAL IJ ONE (14:07)
[2017-09-04] MEDS ORDERED: BUPIVACAINE /EPINEPHRINE/PF 0.5% 30 ML VIAL INJ ONE (14:07)
[2017-09-04] MEDS ORDERED: ONDANSETRON HCL 4 MG/2 ML VIAL IVP ONE (14:07)
[2017-09-04] MEDS ORDERED: LR 1,000 ML IV SCH (18:35)
[2017-09-04] MEDS ORDERED: METOCLOPRAMIDE HCL 10 MG/2 ML VIAL IVP PRN (18:45)
[2017-09-04] MEDS ORDERED: HYDROmorphone 2 MG/ML VIAL IVP PRN (18:45)
[2017-09-04] MEDS ORDERED: HYDROmorphone 1 MG INJ. 1 MG/ML AMPUL IVP PRN ×2 (18:45)
[2017-09-04] MEDS ORDERED: ACETAMINOPHEN 325 MG TABLET PO PRN (19:30)
[2017-09-04] MEDS ORDERED: ONDANSETRON HCL 4 MG/2 ML VIAL IVP PRN (19:30)
[2017-09-04] MEDS ORDERED: HYDROmorphone 1 MG INJ. 1 MG/ML AMPUL ONE (19:52)
[2017-09-05] MEDS: HYDROmorphone 1 MG INJ. 1 MG/ML AMPUL IVP PRN ×3 (00:47→14:43)
[2017-09-05] MEDS: IPRATROPIUM/ALBUTEROL SULFATE 3 ML AMPUL.NEB INH SCH ×4 (00:51→19:47)
[2017-09-05] MEDS: NACL 0.9% 1,000 ML IV SCH ×2 (04:13→14:36)
[2017-09-05 04:21] VITALS: BP_SYST 123
[2017-09-05 06:29] LABS: BASOPHILS % (AUTO) 0.1 % (0.0-2.0); EOSINOPHILS # (AUTO) 0.6 K/uL (0.0-0.4); EOSINOPHILS % (AUTO) 3.6 % (0.0-4.0); HEMATOCRIT 29.3 % (36-48); HEMOGLOBIN 9.7 g/dL (12.0-16.0); LYMPHOCYTES # (AUTO) 0.9 K/uL (1.0-5.5); LYMPHOCYTES % (AUTO) 5.6 % (20.5-51.5); MEAN CORPUSCULAR HEMOGLOBIN 27 pg (27-31); MEAN CORPUSCULAR HGB CONC 33 % (32-36); MEAN CORPUSCULAR VOLUME 82 fL (79.0-98.0); MONOCYTES # (AUTO) 0.7 K/uL (0.0-1.0); MONOCYTES % (AUTO) 4.6 % (1.7-9.3); NEUTROPHILS # (AUTO) 13.3 K/uL (1.8-7.7); NEUTROPHILS % (AUTO) 86.1 % (40.0-70.0); PLATELET COUNT (AUTO) 546 K/uL (130-430); RED CELL DISTRIBUTION WIDTH 13.5 % (9.0-15.0); WHITE BLOOD COUNT (AUTO) 15.5 K/uL (4.8-10.8)
[2017-09-05] MEDS: PIPERACILLIN/TAZO 4.5GM/DEX-IS 100 ML IV SCH ×3 (06:40→22:11)
[2017-09-05] MEDS: LEVOTHYROXINE SODIUM 0.112 MG TABLET PO SCH (06:40)
[2017-09-05 06:45] LABS: CREATININE 1.12 mg/dL (0.55-1.30); POTASSIUM 3.8 mmol/L (3.5-5.1); TOTAL BILIRUBIN 0.9 mg/dL (0.0-1.0)
[2017-09-05 08:51] VITALS: BP_SYST 104
[2017-09-05] MEDS: POTASSIUM CHLORIDE 20 MEQ TAB.PRT.SR PO SCH ×2 (09:30→22:10)
[2017-09-05] MEDS: CALCITRIOL 0.25 MCG CAPSULE PO SCH (09:30)
[2017-09-05] MEDS: CALCIUM 500 MG/TAB PO SCH ×2 (09:30→22:10)
[2017-09-05] MEDS: DIPHENHYDRAMINE HCL 25 MG CAPSULE PO SCH ×3 (09:30→22:09)
[2017-09-05] MEDS: VANCOMYCIN HCL 1,000 MG in NS 250 ML IV SCH (09:43)
[2017-09-05 11:51] VITALS: BP_SYST 103
[2017-09-05] MEDS: LISINOPRIL 20 MG TABLET PO SCH (12:49)
[2017-09-05] MEDS: HYDROCHLOROTHIAZIDE 25 MG TABLET (HCTZ) PO SCH (12:49)
[2017-09-05] MEDS ORDERED: traMADol HCL HCL 50 MG TABLET (ULTRAM) PO PRN ×2 (16:15)
[2017-09-05 16:28] VITALS: BP_SYST 107
[2017-09-05] MEDS ORDERED: FLUCONAZOLE 400 mg/ NS 200 ML IV SCH (16:30)
[2017-09-05 20:00] VITALS: BP_SYST 135
[2017-09-06 00:40] VITALS: BP_SYST 121
[2017-09-06] MEDS: IPRATROPIUM/ALBUTEROL SULFATE 3 ML AMPUL.NEB INH SCH ×3 (00:53→13:00)
[2017-09-06 05:33] VITALS: BP_SYST 129
[2017-09-06] MEDS: LEVOTHYROXINE SODIUM 0.112 MG TABLET PO SCH (06:13)
[2017-09-06] MEDS: PIPERACILLIN/TAZO 4.5GM/DEX-IS 100 ML IV SCH (06:14)
[2017-09-06] MEDS: NACL 0.9% 1,000 ML IV SCH (06:24)
[2017-09-06 07:13] LABS: BASOPHILS # (AUTO) 0.1 K/uL (0.0-0.2); BASOPHILS % (AUTO) 0.6 % (0.0-2.0); EOSINOPHILS # (AUTO) 0.9 K/uL (0.0-0.4); EOSINOPHILS % (AUTO) 7.9 % (0.0-4.0); HEMATOCRIT 28.9 % (36-48); HEMOGLOBIN 9.5 g/dL (12.0-16.0); LYMPHOCYTES # (AUTO) 0.8 K/uL (1.0-5.5); LYMPHOCYTES % (AUTO) 6.9 % (20.5-51.5); MEAN CORPUSCULAR HEMOGLOBIN 27 pg (27-31); MEAN CORPUSCULAR HGB CONC 33 % (32-36); MEAN CORPUSCULAR VOLUME 81 fL (79.0-98.0); MONOCYTES # (AUTO) 0.7 K/uL (0.0-1.0); MONOCYTES % (AUTO) 5.8 % (1.7-9.3); NEUTROPHILS # (AUTO) 9.2 K/uL (1.8-7.7); NEUTROPHILS % (AUTO) 78.8 % (40.0-70.0); PLATELET COUNT (AUTO) 455 K/uL (130-430); RED BLOOD CELL COUNT(AUTO) 3.55 MIL/uL (4.2-6.2); RED CELL DISTRIBUTION WIDTH 13.4 % (9.0-15.0); WHITE BLOOD COUNT (AUTO) 11.7 K/uL (4.8-10.8)
[2017-09-06 07:22] LABS: CALCIUM 8.1 mg/dL (8.4-11.0); CREATININE 1.23 mg/dL (0.55-1.30); POTASSIUM 3.9 mmol/L (3.5-5.1); TOTAL BILIRUBIN 0.8 mg/dL (0.0-1.0)
[2017-09-06 08:23] VITALS: BP_SYST 103
[2017-09-06] MEDS: CALCIUM 500 MG/TAB PO SCH (09:17)
[2017-09-06] MEDS: POTASSIUM CHLORIDE 20 MEQ TAB.PRT.SR PO SCH (09:17)
[2017-09-06] MEDS: CALCITRIOL 0.25 MCG CAPSULE PO SCH (09:17)
[2017-09-06] MEDS: DIPHENHYDRAMINE HCL 25 MG CAPSULE PO SCH (09:17)
[2017-09-06 11:25] VITALS: BP_SYST 108
[2017-09-06] MEDS: LISINOPRIL 20 MG TABLET PO SCH (12:00)
[2017-09-06] MEDS: HYDROCHLOROTHIAZIDE 25 MG TABLET (HCTZ) PO SCH (12:00)
[2017-09-06 13:03] VITALS: BP_SYST 108
== END 2017-09-06 14:08 | disposition home or self-care (01) | DRG 853 ==
LOC: SED 17:35 → SMU 20:16 → STU 08-28 08:59 → SMU 08-31 11:55
PROVIDERS: ADMIT Internal Medicine; ATTEND Internal Medicine
PROC: 0FJB8ZZ Inspection of Hepatobiliary Duct, Via Natural or Artificial Opening Endoscopic (ICD-10-PCS; 2017-08-23)
PROC: 0FC98ZZ Extirpation of Matter from Common Bile Duct, Via Natural or Artificial Opening Endoscopic (ICD-10-PCS; 2017-08-25)
PROC: 0F798DZ Dilation of Common Bile Duct with Intraluminal Device, Via Natural or Artificial Opening Endoscopic (ICD-10-PCS; principal; 2017-08-25 12:45)
PROC: 0FT44ZZ Resection of Gallbladder, Percutaneous Endoscopic Approach (ICD-10-PCS; 2017-09-04)
PROC: 0WQF4ZZ Repair Abdominal Wall, Percutaneous Endoscopic Approach (ICD-10-PCS; 2017-09-04)
DX: A41.9 Sepsis, unspecified organism (principal); K85.90 Acute pancreatitis without necrosis or infection, unspecified; K80.42 Calculus of bile duct with acute cholecystitis without obstruction; K80.63 Calculus of gallbladder and bile duct with acute cholecystitis with obstruction; E83.51 Hypocalcemia; E66.9 Obesity, unspecified; E89.0 Postprocedural hypothyroidism; I10 Essential (primary) hypertension; K59.00 Constipation, unspecified; K66.0 Peritoneal adhesions (postprocedural) (postinfection); L29.9 Pruritus, unspecified; Z53.9 Procedure and treatment not carried out, unspecified reason; K42.9 Umbilical hernia without obstruction or gangrene; E87.6 Hypokalemia; D64.9 Anemia, unspecified; Z85.850 Personal history of malignant neoplasm of thyroid; Z79.899 Other long term (current) drug therapy; Z68.33 Body mass index [BMI] 33.0-33.9, adult
CPT/HCPCS: 36415; 71010; 74181; 76000; 76705; 80048; 80053; 80061; 80074; 80076; 80202-TC; 81000-TC; 82140-TC; 82150-TC; 82248-TC; 82306; 82378; 83516; 83605; 83690-TC; 83735-TC; 83970; 84100-TC; 84443-TC; 85007; 85025; 85027; 85610-TC; 85730-TC; 86038; 86301; 86886; 86900; 86901; 87040-TC; 87081; 87086; 88304; 93005; 94010; 94640; 94760; 96365; 96375; 99285; C1727; C1769; J0360; J0610; J0696; J1100; J1170; J1200; J1450; J1610; J1885; J2250; J2270; J2274; J2405; J2543; J2704; J2710; J3010; J3370; J3480; J3490; J7030; J7050; J7060; J7120; Q0163; Q9964; Q9967